=== PATIENT | male | born 1945 | race African-American/Black ===

== ENCOUNTER → 2018-05-24 | Outpatient (CLI) | payer OTHER ==
[~2018-05-24] MED LIST: ALEVE220 MG PO; AMLODIPINE BESY10 MG PO; CHLORTHALIDONE25 MG PO; LIPITOR10 MG PO
--- NOTE | ~2018-05-24 | EKG ---
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
[2018-05-24 12:39] LABS: CALCIUM 9.7 mg/dL (8.5-10.1); CREATININE 1.4 mg/dL (0.7-1.3); POTASSIUM 4.3 mmol/L (3.5-5.1)
== END ==
LOC: LAB 11:52
PROVIDERS: Anesthesiology
DX: I10 Essential (primary) hypertension (principal)

== ENCOUNTER → 2018-06-15 | Outpatient (CLI) | payer OTHER ==
[2018-06-15 08:53] LABS: CREATININE 1.4 mg/dL (0.7-1.3)
== END ==
LOC: NUC 08:15
PROVIDERS: Urology
DX: C61 Malignant neoplasm of prostate (principal); M16.0 Bilateral primary osteoarthritis of hip; M47.817 Spondylosis without myelopathy or radiculopathy, lumbosacral region; N40.0 Benign prostatic hyperplasia without lower urinary tract symptoms; I70.0 Atherosclerosis of aorta; M48.08 Spinal stenosis, sacral and sacrococcygeal region; M19.011 Primary osteoarthritis, right shoulder; M19.012 Primary osteoarthritis, left shoulder; M19.022 Primary osteoarthritis, left elbow; M19.021 Primary osteoarthritis, right elbow